=== PATIENT | male | born 1985 | race Caucasian/White ===

== ENCOUNTER 2017-11-12 13:36 | Emergency (ER) | payer BC, OTHER ==
[2017-11-12 13:46] VITALS: BP 163/104
[2017-11-12] MEDS ORDERED: Sodium Chloride 0.9% 10 ML Syringe FLUSH PRN (13:59)
[2017-11-12] MEDS ORDERED: Ondansetron 4 MG/2 ML SDV IVPUSH ONE (14:00)
[2017-11-12] MEDS ORDERED: Sodium Chloride 0.9% 1,000 ML IV SCH (14:00)
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
--- NOTE | 2017-11-12 15:55 | CR ---
Chest: PA and lateral views of the chest were obtained. Comparison: Prior portable chest x-ray of 09/06/11. Heart size and mediastinum are normal. Lungs are clear with no acute parenchymal change. Old healed left-sided rib fracture is incidentally noted. Impression: 1. Nothing acute is identified on two-view chest x-ray. Diagnostic code #2
== END 2017-11-12 16:39 | disposition home or self-care (01) ==
LOC: JD.ED 13:36
DX: T67.5XXA Heat exhaustion, unspecified, initial encounter (principal); F17.210 Nicotine dependence, cigarettes, uncomplicated; Z88.5 Allergy status to narcotic agent
CPT/HCPCS: 36415; 71046; 80053; 83690; 84484; 85025; 85379; 93005; 96361; 96374; 99285; G0480; J2405; J7040; J7050; 93010; 99284

== ENCOUNTER 2019-09-21 19:44 | Emergency (ER) | payer OTHER ==
[2019-09-21 20:21] VITALS: BP 173/91; PULSE 104
--- NOTE | 2019-09-21 20:29 | EDM.PDOC ---
ED HPI GENERAL MEDICAL PROBLEM - General Chief Complaint: Neurological Problem Stated Complaint: POSS STROKE Time Seen by Provider: 09/21/19 19:59 Source of Information: Reports: Patient History Limitations: Reports: No Limitations - History of Present Illness INITIAL COMMENTS - FREE TEXT/NARRATIVE: Mr. Lott is a very pleasant 34-year-old man with a past medical history significant for obesity, who now presents the ED stating that when he woke around 9:00 yesterday morning, 09/20/2019, he had right facial paralysis with decreased sensation to the right side of his face. He also noted significant tingling and numbness to the lateral aspect of his left thigh. He states that his symptoms have not changed since they began. He denies any other neurologic symptoms, such as tingling or numbness elsewhere, or weakness. He denies having a headache. No prior similar symptoms. Here in the ED, the patient's initial BP is found to be elevated at 173/91, tachycardia at 104 bpm. He is afebrile, saturating 95% on room air. The patient does not have a PCP. He did not receive an influenza vaccine this season, and declined an offer to receive one here today. - Related Data Allergies Allergy/AdvReac Type Severity Reaction Status Date / Time hydrocodone [From Vicodin] Allergy Itching Verified 09/21/19 20:51 Home Meds: Home Meds predniSONE [Prednisone] 4 tab PO QPM #24 tablet 09/21/19 [Rx] valACYclovir [Valtrex] 1 tab PO Q8H #20 tablet 09/21/19 [Rx] Past Medical History Musculoskeletal History: Reports: Fracture (3 left ribs) Endocrine/Metabolic History: Reports: Obesity/BMI 30+ Dermatologic History: Reports: Eczema - Past Surgical History HEENT Surgical History: Reports: Oral Surgery (wisdom teeth extraction), Tonsillectomy Musculoskeletal Surgical History: Reports: Other (See Below) (Tendon repair right hand) Social & Family History - Family History Family Medical History: Noncontributory - Tobacco Use Smoking Status *Q: Current Some Day Smoker (1 pack per month) Years of Tobacco use: 19 Packs/Tins Daily Comment: Down from 1.5 ppd - Caffeine Use Caffeine Use: Reports: Energy Drinks - Alcohol Use Alcohol Use History: Yes Alcohol Use Frequency: Daily (rarely to excess) - Recreational Drug Use Recreational Drug Use: Yes Drug Use in Last 12 Months: No Recreational Drug Type: Reports: Cocaine (last snorted, smoked 2009), Ecstasy ( last took 2005), LSD (Acid) (last took 2007), Marijuana/Hashish (last smoked 2011), Methamphetamine (last snorted, smoked, injected 2009), Psilocybin ( Mushrooms) (last took 2010) - Living Situation & Occupation Living situation: Reports: , with Spouse, with Family (4 k ids) 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 ED EXAM, NEURO - Physical Exam Exam: See Below Exam Limited By: No Limitations General Appearance: Alert, WD/WN, No Apparent Distress Eye Exam: Bilateral Eye: EOMI, Normal Inspection, PERRL Ears: Normal External Exam, Normal Canal, Hearing Grossly Normal, Normal TMs Nose: Normal Inspection, Normal Mucosa, No Blood Throat/Mouth: Normal Inspection, Normal Lips, Normal Teeth, Normal Gums, Normal Oropharynx, Normal Voice, No Airway Compromise, Other (Tongue stud) Head Exam: Atraumatic, Other (Facial asymmetry - see neuro exam) Neck: Normal Inspection, Supple, Non-Tender, Full Range of Motion. No: Lymphadenopathy (L), Lymphadenopathy (R) Respiratory/Chest: No Respiratory Distress, Lungs Clear, Normal Breath Sounds, No Accessory Muscle Use Cardiovascular: Normal Peripheral Pulses, Regular Rate, Rhythm, No Edema, No Gallop, No JVD, No Murmur, No Rub GI/Abdominal: Normal Bowel Sounds, Soft, Non-Tender, No Organomegaly, No Distention, No Abnormal Bruit, No Mass (Male) Exam: Deferred Rectal (Males) Exam: Deferred Neurological: Alert, Oriented x 3, Other (The patient has obvious right facial palsy, even at rest. He has minimal, if any, right forehead movement, limited if any, right cheek movement, and only minimal right eyelid movement. He is unable to forcibly close his right eye. He is unable to push out his cheeks, hold air, whistle. When asked to stick his tongue straight out, his tongue deviates to the left, however, he is able to move his tongue intentionally to the left and right. The patient reports significant paresthesia to the right side of his face. Noticeably diminished strength when the patient was asked to shrug his shoulders, right greater than left. 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 The patient reports paresthesia to the lateral aspect of his left thigh. Both lower extremities appear to be weaker than expected, with the left greater than the right. This is particularly noticeable with dorsiflexion of his left foot. Normal brachial reflexes bilaterally. Normal forearm reflexes bilaterally. Normal patellar reflex bilaterally. Achilles reflex absent bilaterally. Babinski reflex absent bilaterally.) Back Exam: Normal Inspection, Full Range of Motion, NT Extremities: Normal Inspection, Normal Range of Motion, No Pedal Edema, Normal Capillary Refill Psychiatric: Normal Affect Skin Exam: Warm, Dry, Intact, Normal Color, No Rash EKG INTERPRETATION EKG Date: 09/21/19 Time: 20:33 Rhythm: NSR Rate (Beats/Min): 96 [place]: LAD-Left [place] Deviation (prob 2ndary to LAFB) P-Wave: Enlarged (LAE) QRS: Other (Late transition) ST-T: Normal QT: Normal Comparison: No Change (11/12/2017) Course - Vital Signs Last Recorded V/S: Last Vital Signs Temp 36.5 C 09/21/19 20:03 Pulse 104 H 09/21/19 20:03 Resp 18 09/21/19 20:03 BP 173/91 H 09/21/19 20:03 Pulse Ox 95 09/21/19 20:03 - Orders/Labs/Meds Orders: Active Orders 24 hr Category Date Time Status EKG Documentation Completion [RC] STAT Care 09/21/19 20:20 Active Chest 2V [CR] Stat Exams 09/21/19 20:19 Taken Labs: Laboratory Tests 09/21/19 09/21/19 09/21/19 Range/Units 20:33 20:33 20:33 WBC 8.51 (4.23-9.07) K/mm3 RBC 5.26 (4.63-6.08) M/mm3 Hgb 15.2 (13.7-17.5) gm/dl Hct 46.9 (40.1-51.0) % MCV 89.2 (79.0-92.2) fl MCH 28.9 (25.7-32.2) pg MCHC 32.4 (32.2-35.5) g/dl RDW Std Deviation 43.9 (35.1-43.9) fL Plt Count 218 (163-337) K/mm3 MPV 11.8 (9.4-12.3) fl Neutrophils % (Manual) 74 H (40-60) % Band Neutrophils % 0 (0-10) % Lymphocytes % (Manual) 18 L (20-40) % Atypical Lymphs % 0 % Monocytes % (Manual) 6 (2-10) % Eosinophils % (Manual) 2 (0.8-7.0) % Basophils % (Manual) 0 L (0.2-1.2) Platelet Estimate Adequate RBC Morph Comment Normal PT 10.5 (9.7-12.0) SECONDS INR 0.96 APTT 25 (22-31) SECONDS D-Dimer, Quantitative 0.52 H (0.19-0.50) mg/L Sodium 143 (136-145) mEq/L Potassium 4.4 (3.5-5.1) mEq/L Chloride 107 (98-107) mEq/L Carbon Dioxide 27 (21-32) mEq/L Anion Gap 13.4 (5-15) BUN 19 H (7-18) mg/dL Creatinine 1.0 (0.7-1.3) mg/dL Est Cr Clr Drug Dosing 131.18 mL/min Estimated GFR (MDRD) > 60 (>60) mL/min BUN/Creatinine Ratio 19.0 H (14-18) Glucose 84 (74-106) mg/dL POC Glucose (70-105) mg/dL Calcium 8.7 (8.5-10.1) mg/dL Magnesium 1.9 (1.8-2.4) mg/dl Total Bilirubin 0.2 (0.2-1.0) mg/dL AST 20 (15-37) U/L ALT 66 H (16-63) U/L Alkaline Phosphatase 99 (46-116) U/L Troponin I < 0.017 (0.00-0.056) ng/mL C-Reactive Protein 0.3 (<1.0) mg/dL Total Protein 7.4 (6.4-8.2) g/dl Albumin 4.0 (3.4-5.0) g/dl Globulin 3.4 gm/dL Albumin/Globulin Ratio 1.2 (1-2) 09/21/19 Range/Units 20:59 WBC (4.23-9.07) K/mm3 RBC (4.63-6.08) M/mm3 Hgb (13.7-17.5) gm/dl Hct (40.1-51.0) % MCV (79.0-92.2) fl MCH (25.7-32.2) pg MCHC (32.2-35.5) g/dl RDW Std Deviation (35.1-43.9) fL Plt Count (163-337) K/mm3 MPV (9.4-12.3) fl Neutrophils % (Manual) (40-60) % Band Neutrophils % (0-10) % Lymphocytes % (Manual) (20-40) % Atypical Lymphs % % Monocytes % (Manual) (2-10) % Eosinophils % (Manual) (0.8-7.0) % Basophils % (Manual) (0.2-1.2) Platelet Estimate RBC Morph Comment PT (9.7-12.0) SECONDS INR APTT (22-31) SECONDS D-Dimer, Quantitative (0.19-0.50) mg/L Sodium (136-145) mEq/L Potassium (3.5-5.1) mEq/L Chloride (98-107) mEq/L Carbon Dioxide (21-32) mEq/L Anion Gap (5-15) BUN (7-18) mg/dL Creatinine (0.7-1.3) mg/dL Est Cr Clr Drug Dosing mL/min Estimated GFR (MDRD) (>60) mL/min BUN/Creatinine Ratio (14-18) Glucose (74-106) mg/dL POC Glucose 80 (70-105) mg/dL Calcium (8.5-10.1) mg/dL Magnesium (1.8-2.4) mg/dl Total Bilirubin (0.2-1.0) mg/dL AST (15-37) U/L ALT (16-63) U/L Alkaline Phosphatase (46-116) U/L Troponin I (0.00-0.056) ng/mL C-Reactive Protein (<1.0) mg/dL Total Protein (6.4-8.2) g/dl Albumin (3.4-5.0) g/dl Globulin gm/dL Albumin/Globulin Ratio (1-2) Meds: Medications Discontinued Medications Generic Name Dose Route Start Last Admin Trade Name Mack PRN Reason Stop Dose Admin Sodium Chloride 1,000 mls @ 100 mls/hr 09/21/19 20:30 09/21/19 20:31 Normal Saline IV 100 mls/hr ASDIRECTED ABREN Administration Prednisone 80 mg 09/21/19 22:30 09/21/19 22:43 Prednisone PO 09/21/19 22:31 80 mg ONETIME STA Administration Valacyclovir HCl 1,000 mg 09/21/19 22:30 09/21/19 22:44 Valtrex PO 09/21/19 22:31 1,000 mg ONETIME STA Administration - Re-Assessments/Exams Free Text/Narrative Re-Assessment/Exam: 09/21/19 20:23 Because the patient's right facial paralysis involves his forehead, 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 These disparate neurologic deficits are concerning for MS versus a multi-focal stroke. I have ordered a CT of the head without contrast, along with blood work, a chest x-ray, and an ECG. If there are any abnormalities on the CT of the head, I will see if we can obtain a CT angiogram of the brain. 09/21/19 20:49 Two-view chest radiograph appears to be grossly normal. The cardiac silhouette is within normal limits. No pulmonary vascular congestion. No pleural effusions. No focal infiltrate. No pneumothorax. Formal read per the Radiologist pending. 09/21/19 21:10 CT of the head without contrast as read by Dr. Waggoner as: 1. Nothing acute is seen on noncontrast head CT study. 2. If patient's symptoms warrant further evaluation, MRI could then be considered. 09/21/19 21:44 The patient's CBC is unremarkable. His CMP is remarkable for a BUN slightly elevated at 19, with a Cr normal at 1.0. His AST is normal at 20, with an ALT slightly elevated at 66. The remainder of his CBC is unremarkable. His magnesium level is normal at 1.9. His troponin is undetectably low. His CRP is within normal limits at 0.3. His D-dimer is slightly elevated at 0.52. His coags are within normal limits. 09/21/19 22:31 Case discussed with Ines at [facility] at 21:55. Case then discussed with Dr Lopez, Neurologist at [facility], at 21: 57. He was concerned that the patient could be suffering from Guillain-Guerrero or a meningeal carcinomatosis, however, he was unable to make any determinations based on the information provided. He offered to see the patient in his clinic tomorrow, but then also recommended I discuss the case with the ED Physician to arrange for an MRI tonight. Case then discussed with Dr. Robles, Emergency Physician at [facility], at 22:24. He also felt that the patient may be suffering from MS. He agreed that the patient would benefit from an emergency MRI, and agreed to accept the patient for transfer to their ED. The patient can be transferred by private vehicle, if he prefers, or by ambulance if he does not have a ride. Chest x-ray and CT of the head images pushed to [facility] at 22:32. 09/21/19 22:41 The above plan was discussed with the patient. Unfortunately, he is refusing to go to [facility], either via private vehicle or ambulance. He states that he needs to go to work tomorrow. The patient will therefore be started on prednisone and Valtrex here, and I will submit prescriptions to complete a one-week course. I will have the patient's nurse teach him how to tape his right eyelid shut, to avoid injury, and I will refer him to our clinic for follow-up. Departure - Departure Time of Disposition: 22:43 Disposition: Home, Self-Care 01 Condition: Good Clinical Impression: Alford palsy, Generalized weakness, Paresthesia of left lower extremity - Discharge Information *PRESCRIPTION DRUG MONITORING PROGRAM REVIEWED*: Not Applicable *COPY OF PRESCRIPTION DRUG MONITORING REPORT IN PATIENT [facility]RI[facility]I: Not Applicable Prescriptions: predniSONE [Prednisone] 4 tab PO QPM #24 tablet valACYclovir [Valtrex] 1 tab PO Q8H #20 tablet Instructions: Alford Palsy, Adult, Weakness, [id number], Paresthesia, Easy-to- Read Referrals: Danica Weaver MD [Physician] - Forms: ED Department Discharge Additional Instructions: You were seen in the emergency room for right facial weakness, with tingling and numbness to the right side of your face and to your left thigh. Work-up in the ER included blood work, a chest x-ray, a CT scan of your head without contrast, and an ECG. Your entire work-up was unremarkable. You have not suffered a stroke. Your right facial weakness is due to Alford palsy, however, you have numerous other neurologic abnormalities that we cannot explain. Transfer to [facility] to undergo an emergent MRI of your brain was recommended, but declined. You have been started on the antiviral medicine valacyclovir (Valtrex) and the steroid prednisone, and prescriptions for both of these medicines have been sent to the [facility] located in the [place] [email or web address] [facility]. Take 1 tablet of valacyclovir every 8 hours, starting first thing tomorrow morning, 09/22/2019, as prescribed. Take 4 tablets (80 mg) of prednisone every evening, starting tomorrow evening, 09/22/2019, as prescribed. Make sure that you finish both prescriptions unless told otherwise by a doctor. It is very important that you or your carefully tape your right eyelid closed at bedtime, or even during the day if there is any chance that your right eye could become injured. We recommend that you follow-up with Dr. Danica Weaver, or one of the other providers in the clinic, at the next available appointment. They can arrange for an outpatient MRI. If any of your symptoms worsen, we strongly recommend that you return to the ER for reevaluation. Sepsis Event Note - Focused Exam Vital Signs: Vital Signs Temp Pulse Resp BP Pulse Ox 09/21/19 20:03 36.5 C 104 H 18 173/91 H 95 Date Exam was Performed: 09/22/19 Time Exam was Performed: 01:52 - My Orders Last 24 Hours: My Active Orders 09/21/19 20:19 Chest 2V [CR] Stat 09/21/19 20:20 EKG Documentation Completion [RC] STAT - Assessment/Plan Last 24 Hours: My Active Orders 09/21/19 20:19 Chest 2V [CR] Stat 09/21/19 20:20 EKG Documentation Completion [RC] STAT
[2019-09-21] MEDS ORDERED: Sodium Chloride 0.9% 1,000 ML IV SCH (20:30)
--- NOTE | 2019-09-21 20:51 | CT ---
Head CT Technique: Multiple axial sections through the brain were obtained. Intravenous contrast was not utilized. Comparison: Previous head CT study of 09/06/11. Findings: Ventricles along with basal cisterns and sulci over convexities are within normal limits. No abnormal parenchymal densities are seen. No evidence of intracranial hemorrhage. No midline shift or mass effect is seen. Bone window settings were reviewed. No acute calvarial abnormality is seen. Visualized paranasal sinuses showed nothing acute. Visualized mastoid sinuses showed nothing acute. Impression: 1. Nothing acute is seen on noncontrast head CT study. 2. If patient's symptoms warrant further evaluation, MRI could then be considered. Diagnostic code #1 Study was dictated in MDT
[2019-09-21] MEDS ORDERED: valACYclovir 1,000 MG Tab PO STA (22:30)
[2019-09-21] MEDS ORDERED: predniSONE 20 MG Tab PO STA (22:30)
--- NOTE | 2019-09-22 08:37 | CR ---
Chest: PA and lateral views of the chest were obtained. Comparison: Prior chest x-ray of 11/12/17. Heart size and mediastinum are normal. Lungs are clear with no acute parenchymal change. 1 or 2 old healed left-sided rib fractures are noted.. Impression: 1. Nothing acute is appreciated on 2 view chest x-ray. Diagnostic code #2 This report was dictated in MDT
== END 2019-09-21 23:11 | disposition home or self-care (01) ==
LOC: JD.ED 19:44
DX: G51.0 Bell's palsy (principal); R53.1 Weakness; Z88.5 Allergy status to narcotic agent; E66.9 Obesity, unspecified; F17.210 Nicotine dependence, cigarettes, uncomplicated; Z68.35 Body mass index [BMI] 35.0-35.9, adult
CPT/HCPCS: 36415; 70450; 71046; 80053; 82962; 83735; 84484; 85007; 85027; 85379; 85610; 85730; 86140; 93005; 96360; 96361; 99285; A9270; J7030; 93010; 99284

== ENCOUNTER 2020-01-03 17:49 | Emergency (ER) | payer OTHER ==
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
[2020-01-03 18:04] VITALS: PULSE 116
--- NOTE | 2020-01-03 18:41 | CT ---
Head CT Technique: Multiple axial sections through the brain were obtained. Intravenous contrast was not utilized. Comparison: Prior head CT study of 09/21/19 and prior MRI brain of 10/13/19. Findings: Soft tissue swelling and mild soft tissue hematoma is noted within the left frontal scalp. Ventricles along with basal cisterns and sulci over the convexities are within normal limits for the patient's age. No abnormal parenchymal densities are seen within the brain parenchyma. No midline shift or mass-effect is seen. Bone window settings were reviewed which shows a partially visualized nasal bone fracture. Visualized paranasal sinuses and mastoid sinuses are clear. No acute calvarial finding is seen. Impression: 1. Partially visualized nasal bone fracture. Please correlate that patient is symptomatic to this area for this to be acute. 2. Soft tissue swelling and hematoma within the left frontal scalp. 3. No acute intracranial abnormality is appreciated. Diagnostic code # This report was dictated in MDT
[2020-01-03] MEDS ORDERED: Acetaminophen/oxyCODONE 325-5 MG Tab PO ONE (18:53)
[2020-01-03] MEDS ORDERED: Ondansetron 4 MG Tab.DIS PO ONE (18:53)
[2020-01-03 19:42] VITALS: BP 163/106
--- NOTE | 2020-01-04 05:13 | CR ---
Chest: 2 views of the chest were obtained. Comparison: Prior chest x-ray of 11/12/17. Heart size and mediastinum are normal. Lungs are clear with no acute parenchymal change. Old healed mid left-sided rib fracture is noted. No acute bony abnormality is identified. Impression: 1. Nothing acute is appreciated on 2 view chest x-ray. Diagnostic code #2 This report was dictated in MDT
--- NOTE | 2020-01-04 05:14 | CR ---
Right wrist: 3 views of the right wrist were obtained. Comparison: No prior wrist exam. Joint spaces are maintained. No acute fracture, dislocation or other bony abnormality is appreciated. Impression: 1. Nothing acute is appreciated on right wrist exam. Diagnostic code #1 This report was dictated in MDT
--- NOTE | 2020-01-04 05:15 | CR ---
Left forearm: 2 views of the left forearm were obtained. Comparison: No prior forearm study is available. No fracture or other bony abnormality is appreciated. Impression: 1. No abnormality is appreciated on 2 view left forearm study. Diagnostic code #1 This report was dictated in MDT
== END 2020-01-03 19:32 | disposition home or self-care (01) ==
LOC: JD.ED 17:49
DX: S06.0X1A Concussion with loss of consciousness of 30 minutes or less, initial encounter (principal); S66.911A Strain of unspecified muscle, fascia and tendon at wrist and hand level, right hand, initial encounter; S00.83XA Contusion of other part of head, initial encounter; S50.12XA Contusion of left forearm, initial encounter; S80.812A Abrasion, left lower leg, initial encounter; S50.312A Abrasion of left elbow, initial encounter; E66.9 Obesity, unspecified; Z68.37 Body mass index [BMI] 37.0-37.9, adult; Z88.5 Allergy status to narcotic agent; V29.9XXA Motorcycle rider (driver) (passenger) injured in unspecified traffic accident, initial encounter; Y92.410 Unspecified street and highway as the place of occurrence of the external cause
CPT/HCPCS: 70450; 71046; 73090; 73110; 99285; A9270; 99284

== ENCOUNTER 2020-11-13 11:34 | Emergency (ER) | payer OTHER ==
[2020-11-13 13:01] VITALS: BP 140/80; PULSE 70
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
--- NOTE | 2020-11-13 17:27 | CR ---
Left second finger: 3 views centered to the left second finger were obtained. Comparison: No previous study is available. Soft tissue swelling is identified. Joint spaces are maintained. No acute fracture, dislocation or other bony abnormality is appreciated. Impression: 1. Soft tissue swelling. 2. No acute osseous finding is seen on left second finger study. Diagnostic code #2
== END 2020-11-13 13:10 | disposition home or self-care (01) ==
LOC: JD.ED 11:34
DX: S69.92XA Unspecified injury of left wrist, hand and finger(s), initial encounter (principal); I10 Essential (primary) hypertension; E66.9 Obesity, unspecified; Z88.5 Allergy status to narcotic agent; Z68.41 Body mass index [BMI] 40.0-44.9, adult; Z72.0 Tobacco use; X50.1XXA Overexertion from prolonged static or awkward postures, initial encounter
CPT/HCPCS: 73140-26-F1; 73140-F1; 99283

== ENCOUNTER 2021-06-09 12:45 | Emergency (ER) | payer OTHER, BC ==
[2021-06-09 13:01] VITALS: BP 163/99; PULSE 80
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
--- NOTE | 2021-06-10 10:58 | CR ---
Right foot: 3 views of the right foot were obtained. Comparison: Prior right foot study of 02/14/10. Joint spaces are preserved. Bony density is noted on the lateral view off the base of metatarsal which is a normal variant. This is stable from prior exam. No acute fracture, dislocation or other bony abnormality is seen. Impression: 1. Incidental finding as noted above. 2. Nothing acute is seen on right foot study. Diagnostic code #2
--- NOTE | 2021-06-10 11:00 | CR ---
Right ankle: 3 views of the right ankle were obtained. Comparison: No prior right ankle study is available. Bony density is noted off the base of the metatarsals which is noted on the lateral view and is a normal variant. Bony density is noted off the distal fibula or lateral talus which is well defined and is compatible with old injury. Ankle mortise is symmetric. No acute fracture, dislocation or other bony abnormality is seen. Diffuse soft tissue swelling is noted. Impression: 1. Soft tissue swelling. 2. No acute osseous abnormality is seen on right ankle study. Diagnostic code #2
== END 2021-06-09 14:26 | disposition home or self-care (01) ==
LOC: JD.ED 12:45
DX: S93.401A Sprain of unspecified ligament of right ankle, initial encounter (principal); I10 Essential (primary) hypertension; E66.9 Obesity, unspecified; Z68.39 Body mass index [BMI] 39.0-39.9, adult; Z72.0 Tobacco use; Z88.5 Allergy status to narcotic agent; V29.9XXA Motorcycle rider (driver) (passenger) injured in unspecified traffic accident, initial encounter
CPT/HCPCS: 73610-26-RT; 73610-RT; 73630-26-RT; 73630-RT; 99283-25

== ENCOUNTER 2021-06-09 16:17 | Emergency (ER) | payer BC ==
[2021-06-09] MEDS ORDERED: diphenhydrAMINE 50 MG/ML SDV IM ONE (16:28)
[2021-06-09] MEDS ORDERED: methylPREDNISolone Sodium Succinate 125 MG/2 ML SDV IM ONE (16:28)
[2021-06-09 16:33] VITALS: BP 150/91; PULSE 100
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
== END 2021-06-09 17:25 | disposition home or self-care (01) ==
LOC: JD.ED 16:17
DX: L29.9 Pruritus, unspecified (principal); T40.2X5A Adverse effect of other opioids, initial encounter; I10 Essential (primary) hypertension; E66.9 Obesity, unspecified; Z68.39 Body mass index [BMI] 39.0-39.9, adult
CPT/HCPCS: 96372; 99283; J2930

== ENCOUNTER 2021-07-10 20:19 | Emergency (ER) | payer BC, OTHER ==
[2021-07-10 21:03] VITALS: BP 131/96; PULSE 96
== END 2021-07-10 22:56 | disposition home or self-care (01) ==
LOC: JD.ED 20:19
DX: S39.012A Strain of muscle, fascia and tendon of lower back, initial encounter (principal); S80.11XA Contusion of right lower leg, initial encounter; I10 Essential (primary) hypertension; E66.9 Obesity, unspecified; Z68.30 Body mass index [BMI] 30.0-30.9, adult; Z72.0 Tobacco use; Z88.5 Allergy status to narcotic agent; Z79.899 Other long term (current) drug therapy; W10.9XXA Fall (on) (from) unspecified stairs and steps, initial encounter
CPT/HCPCS: 72100; 72100-26; 73590-26-RT; 73590-RT; 99283; 99283-25

== ENCOUNTER 2021-08-02 20:07 | Emergency (ER) | payer BC ==
[2021-08-02 21:11] VITALS: BP 133/74; PULSE 106
[2021-08-02] MEDS ORDERED: HYDROmorphone 1 MG/ML Syringe IM ONE (21:21)
== END 2021-08-02 21:40 | disposition home or self-care (01) ==
LOC: JD.ED 20:07
DX: M25.552 Pain in left hip (principal); M25.512 Pain in left shoulder; I10 Essential (primary) hypertension; E66.9 Obesity, unspecified; Z68.42 Body mass index [BMI] 45.0-49.9, adult; Z88.5 Allergy status to narcotic agent; Z79.899 Other long term (current) drug therapy
CPT/HCPCS: 73030; 73502; 73562; 96372; 99283; A9270; J1170

== ENCOUNTER 2021-08-04 11:29 | Emergency (ER) | payer BC ==
[2021-08-04 11:47] VITALS: BP 133/92; PULSE 111
== END 2021-08-04 12:51 | disposition home or self-care (01) ==
LOC: JD.ED 11:29
DX: S06.0X0A Concussion without loss of consciousness, initial encounter (principal); I10 Essential (primary) hypertension; E66.9 Obesity, unspecified; Z68.42 Body mass index [BMI] 45.0-49.9, adult; Z72.0 Tobacco use; Z79.899 Other long term (current) drug therapy; W10.8XXA Fall (on) (from) other stairs and steps, initial encounter
CPT/HCPCS: 70450; 70450-26; 99283-25; 99284

== ENCOUNTER 2021-09-01 12:25 | Emergency (ER) | payer BC ==
[2021-09-01 12:40] VITALS: BP 162/108; PULSE 110
== END 2021-09-01 13:42 | disposition home or self-care (01) ==
LOC: JD.ED 12:25
DX: S20.222A Contusion of left back wall of thorax, initial encounter (principal); I10 Essential (primary) hypertension; E66.9 Obesity, unspecified; Z72.0 Tobacco use; Z68.41 Body mass index [BMI] 40.0-44.9, adult; Z86.16 Personal history of COVID-19; Z88.5 Allergy status to narcotic agent; W18.09XA Striking against other object with subsequent fall, initial encounter
CPT/HCPCS: 99283

== ENCOUNTER 2021-09-03 16:16 | Emergency (ER) | payer BC ==
[2021-09-03] MEDS ORDERED: Naloxone 0.4 MG/ML SDV IVPUSH ONE (16:21)
[2021-09-03] MEDS ORDERED: Sodium Chloride 0.9% 1,000 ML IV SCH (16:30)
[2021-09-03] MEDS ORDERED: Naloxone 0.4 MG/ML SDV ONE (16:39)
[2021-09-03 17:48] VITALS: PULSE 92
[2021-09-03 18:16] VITALS: BP 127/81
== END 2021-09-04 01:45 | disposition home or self-care (01) ==
LOC: JD.ED 16:16
DX: F13.10 Sedative, hypnotic or anxiolytic abuse, uncomplicated (principal); I10 Essential (primary) hypertension; E66.9 Obesity, unspecified; Z88.5 Allergy status to narcotic agent; Z88.8 Allergy status to other drugs, medicaments and biological substances; Z68.41 Body mass index [BMI] 40.0-44.9, adult
CPT/HCPCS: 36415; 70450; 71045; 80053; 80306; 80307; 83735; 83880; 83930; 84484; 85025; 85610; 85730; 86140; 93005; 96374; 99285; J2310; J7030; 93010

== ENCOUNTER 2021-09-04 15:52 | Emergency (ER) | payer BC ==
[2021-09-04 16:10] VITALS: BP 160/94; PULSE 101
[2021-09-04 18:01] LABS: ACETAMINOPHEN 0 ug/mL (10-30)
== END 2021-09-04 21:00 | disposition home or self-care (01) ==
LOC: JD.ED 15:52
DX: R44.0 Auditory hallucinations (principal); I10 Essential (primary) hypertension; E66.9 Obesity, unspecified; Z68.41 Body mass index [BMI] 40.0-44.9, adult; Z88.5 Allergy status to narcotic agent; Z88.8 Allergy status to other drugs, medicaments and biological substances; Z20.822 Contact with and (suspected) exposure to COVID-19
CPT/HCPCS: 36415; 80053; 80143; 80179; 80306; 80307; 84443; 85025; 99284; 99285; U0002

== ENCOUNTER 2022-03-09 09:49 | Emergency (ER) | payer BC ==
[2022-03-09 10:11] VITALS: BP 142/98; PULSE 107
[2022-03-09] MEDS ORDERED: Acetaminophen 325 MG Tab PO ONE (10:21)
[2022-03-09] MEDS ORDERED: Ketorolac 15 MG/ML SDV IM STA (10:21)
[2022-03-09] MEDS ORDERED: Cyclobenzaprine 10 MG Tab PO ONE (11:40)
== END 2022-03-09 12:40 | disposition home or self-care (01) ==
LOC: JD.ED 09:49
DX: S43.401A Unspecified sprain of right shoulder joint, initial encounter (principal); S20.222A Contusion of left back wall of thorax, initial encounter; I10 Essential (primary) hypertension; F17.210 Nicotine dependence, cigarettes, uncomplicated; E66.9 Obesity, unspecified; Z68.41 Body mass index [BMI] 40.0-44.9, adult; Z88.6 Allergy status to analgesic agent; Z88.5 Allergy status to narcotic agent; Z79.899 Other long term (current) drug therapy; Z86.16 Personal history of COVID-19; W10.9XXA Fall (on) (from) unspecified stairs and steps, initial encounter
CPT/HCPCS: 72100; 73030; 96372; 99283; A9270; J1885; 99282

== ENCOUNTER 2023-07-12 14:56 | Emergency (ER) | payer BC ==
[2023-07-12] MEDS ORDERED: Sodium Chloride 0.9% 10 ML Syringe FLUSH PRN (15:14)
[2023-07-12] MEDS ORDERED: Ondansetron 4 MG/2 ML SDV IVPUSH ONE ×2 (15:14→15:37)
[2023-07-12] MEDS ORDERED: Sodium Chloride 0.9% 1,000 ML IV SCH (15:15)
[2023-07-12 16:02] LABS: BASOPHILS PERCENT AUTO 0.5 % (0.0-1.0); EOSINOPHILS ABSOLUTE AUTO 0.1 K/mm3 (0.0-0.4); HEMATOCRIT 46.1 % (42.0-52.0); HEMOGLOBIN 15.1 gm/dl (14.0-18.0); IMMATURE GRAN ABSOLUTE AUTO 0.02 K/mm3 (0.00-0.05); IMMATURE GRAN PERCENT AUTO 0.3 % (0.0-0.4); LYMPHOCYTES ABSOLUTE AUTO 1.9 K/mm3 (1.0-4.8); MEAN CORPUSCULAR HEMOGLOBIN 28.7 pg (28.0-32.0); MEAN CORPUSCULAR HGB CONC 32.8 g/dl (32.0-36.0); MEAN CORPUSCULAR VOLUME 87.6 fl (83.0-99.0); MEAN PLATELET VOLUME 11.6 fl (9.4-12.4); MONOCYTES ABSOLUTE AUTO 0.7 K/mm3 (0.0-0.8); MONOCYTES PERCENT AUTO 9.1 % (0.0-8.0); NEUTROPHILS ABSOLUTE AUTO 5.2 K/mm3 (1.8-7.7); NEUTROPHILS PERCENT AUTO 65.1 % (41.0-71.0); PLATELET COUNT,PLT 196 K/mm3 (150-400); RED BLOOD CELL COUNT 5.26 M/mm3 (4.52-5.90)
[2023-07-12 16:35] LABS: A/G RATIO 1.1 (1-2); ALBUMIN 4.3 g/dl (3.4-5.0); ANION GAP 15.9 (5-15); BILIRUBIN TOTAL 0.4 mg/dL (0.2-1.0); C-REACTIVE PROTEIN 0.5 mg/dL (<1.0); CALCIUM 9.6 mg/dL (8.5-10.1); EST CRCL DRUG DOSING (CG) 126.23 mL/min; POTASSIUM,K 3.9 mEq/L (3.5-5.1); PROTEIN TOTAL,TP 8.1 g/dl (6.4-8.2)
[2023-07-12] MEDS ORDERED: Ketorolac 30 MG/ML SDV IVPUSH ONE (16:37)
[2023-07-12] MEDS ORDERED: Morphine 4 MG/ML Syringe IVPUSH ONE (16:39)
[2023-07-12] MEDS ORDERED: Naloxone 0.4 MG/ML SDV IVPUSH PRN (16:39)
[2023-07-12] MEDS ORDERED: Iopamidol 612 MG/ML 30 ML SDV IVPUSH ONE (16:48)
[2023-07-12] MEDS ORDERED: Iopamidol 612 MG/ML 100 ML Bottle IVPUSH ONE (16:48)
[2023-07-12] MEDS ORDERED: Sodium Chloride 0.9% 10 ML Syringe FLUSH ONE (16:48)
[2023-07-12] MEDS ORDERED: Alum Hydrox/Mag Hydrox/Simeth 30 ML, Lidocaine 2% 15 ML PO ONE ×2 (17:44)
[2023-07-12 19:02] VITALS: BP 156/106; PULSE 82
== END 2023-07-12 18:45 | disposition home or self-care (01) ==
LOC: JD.ED 14:56
DX: K29.00 Acute gastritis without bleeding (principal); I10 Essential (primary) hypertension; E66.9 Obesity, unspecified; Z68.42 Body mass index [BMI] 45.0-49.9, adult; Z86.16 Personal history of COVID-19; Z88.5 Allergy status to narcotic agent; Z88.6 Allergy status to analgesic agent
CPT/HCPCS: 36415; 74177; 80053; 83605; 83690; 83735; 85025; 86140; 96361; 96374; 96375; 99284; A9270; J2270; J2405; J3490; J7030; Q9967

== ENCOUNTER 2023-10-10 17:17 | Emergency (ER) | payer BC ==
[2023-10-10] MEDS: Ketorolac 60 MG/2 ML SDV IM ONE (18:37)
[2023-10-10 20:41] VITALS: BP 154/102; PULSE 90
== END 2023-10-10 19:59 | disposition home or self-care (01) ==
LOC: JD.ED 17:17
DX: M25.532 Pain in left wrist (principal); I10 Essential (primary) hypertension; E66.9 Obesity, unspecified; F17.210 Nicotine dependence, cigarettes, uncomplicated; Z88.8 Allergy status to other drugs, medicaments and biological substances; Z88.5 Allergy status to narcotic agent; Z79.899 Other long term (current) drug therapy; Z86.19 Personal history of other infectious and parasitic diseases; Z86.16 Personal history of COVID-19; Z68.42 Body mass index [BMI] 45.0-49.9, adult
CPT/HCPCS: 29125; 73110-26-LT; 73110-LT; 96372; 99283-25; J1885

== ENCOUNTER 2025-05-09 08:23 | Emergency (ER) | payer BC ==
[2025-05-09 09:04] LABS: BASOPHILS ABSOLUTE AUTO 0.1 K/mm3 (0.0-0.2); BASOPHILS PERCENT AUTO 0.7 % (0.0-1.0); EOSINOPHILS ABSOLUTE AUTO 0.4 K/mm3 (0.0-0.4); EOSINOPHILS PERCENT AUTO 4.7 % (0.0-6.0); IMMATURE GRAN ABSOLUTE AUTO 0.02 K/mm3 (0.00-0.05); IMMATURE GRAN PERCENT AUTO 0.2 % (0.0-0.4); LYMPHOCYTES ABSOLUTE AUTO 1.5 K/mm3 (1.0-4.8); LYMPHOCYTES PERCENT AUTO 17.3 % (24.0-44.0); MEAN PLATELET VOLUME 11.5 fl (9.4-12.4); MONOCYTES ABSOLUTE AUTO 0.6 K/mm3 (0.0-0.8); MONOCYTES PERCENT AUTO 7.4 % (0.0-8.0); NEUTROPHILS ABSOLUTE AUTO 6.0 K/mm3 (1.8-7.7); NEUTROPHILS PERCENT AUTO 69.7 % (41.0-71.0); NRBC ABSOLUTE 0.00 (0.00-0.02); NRBC PERCENT 0.0 % (0.0-0.2); PLATELET COUNT,PLT 202 K/mm3 (150-400); RED BLOOD CELL COUNT 5.42 M/mm3 (4.52-5.90); WHITE BLOOD CELL COUNT,WBC 8.54 K/mm3 (3.9-11.3)
[2025-05-09] MEDS: LORazepam 2 MG/ML SDV IVPUSH ONE (09:09)
[2025-05-09] MEDS: Sodium Chloride 0.9% 10 ML Syringe FLUSH PRN (09:09)
[2025-05-09] MEDS: Ondansetron 4 MG/2 ML SDV IVPUSH ONE (09:10)
[2025-05-09 09:44] LABS: A/G RATIO 1.1 (1-2); ALANINE AMINOTRANSFERASE,ALT 39.0 U/L (16-63); ASPARTATE AMNIOTRANSFERASE,AST 16.0 U/L (15-37); BILIRUBIN TOTAL 0.3 mg/dL (0.2-1.0); BLOOD UREA NITROGEN,BUN 12.0 mg/dL (7-18); CARBON DIOXIDE,CO2 29.0 mEq/L (21-32); CHLORIDE,CL 105.0 mEq/L (98-107); CREATININE 1.0 mg/dL (0.7-1.3); EST CRCL DRUG DOSING (CG) 124.99 mL/min; ESTIMATED GFR 98.0 mL/min (>60); GLUCOSE RANDOM 159.0 mg/dL (70-99); POTASSIUM,K 4.1 mEq/L (3.5-5.1); PROTEIN TOTAL,TP 7.6 g/dl (6.4-8.2); SODIUM,NA 141.0 mEq/L (136-145); TSH 1.128 uIU/mL (0.358-3.74)
[2025-05-09 09:46] LABS: ETHANOL BLOOD MEDICAL 0.0 gm% (0.00)
[2025-05-09 09:51] LABS: BUPRENORPHINE SCREEN,URINE NEGATIVE (CUTOFF=10); METHADONE SCREEN, URINE NEGATIVE (CUT0FF=200); METHAMPHETAMINES SCREEN, URINE NEGATIVE (CUTOFF=500); OXYCODONE SCREEN,URINE NEGATIVE (CUT0FF=100); THC SCREEN,URINE 20 NG/ML NEGATIVE (CUTOFF=50)
[2025-05-09 09:57] LABS: AMPHETAMINES SCREEN, URINE NEGATIVE (CUTOFF=500)
[2025-05-09 10:57] VITALS: BP 161/107; PULSE 88
== END 2025-05-09 10:39 | disposition home or self-care (01) ==
LOC: JD.ED 08:23
DX: F11.23 Opioid dependence with withdrawal (principal); I10 Essential (primary) hypertension; F17.200 Nicotine dependence, unspecified, uncomplicated; Z88.8 Allergy status to other drugs, medicaments and biological substances; Z79.899 Other long term (current) drug therapy; Z86.16 Personal history of COVID-19
CPT/HCPCS: 36415; 80053; 80143; 80179; 80306; 80307; 84443; 85025; 96361; 96374; 96375; 99284; A9270; J2060; J2405; J7030

== ENCOUNTER 2025-05-09 17:45 | Emergency (ER) | payer BC ==
[2025-05-09] MEDS ORDERED: Sodium Chloride 0.9% 10 ML Syringe FLUSH PRN (18:28)
[2025-05-09] MEDS: Ondansetron 4 MG/2 ML SDV IVPUSH ONE (18:42)
[2025-05-09] MEDS: LORazepam 2 MG/ML SDV IVPUSH ONE (18:42)
[2025-05-09 22:35] VITALS: BP 139/98; PULSE 79
== END 2025-05-09 21:35 | disposition other institution (70) ==
LOC: JD.ED 17:45
DX: F11.23 Opioid dependence with withdrawal (principal); E86.0 Dehydration; I10 Essential (primary) hypertension; Z88.8 Allergy status to other drugs, medicaments and biological substances; Z79.899 Other long term (current) drug therapy
CPT/HCPCS: 96361; 96374; 96375; 99283; A9270; J2060; J2405; J7030; 99284